=== PATIENT | female | born 1960 | race Two or more races ===

== ENCOUNTER 2018-11-10 07:34 | Day surgery (SDC) | payer OTHER ==
[2018-11-05 12:59] VITALS: BMI 21.8
[2018-11-10] MEDS ORDERED: MIDAZOLAM HCL 2 MG/2 ML SINGLE DOSE VIAL ONE (08:43)
[2018-11-10] MEDS ORDERED: PROPOFOL 20 ML ONE (08:43)
[2018-11-10] MEDS ORDERED: THROMBIN (RECOMBINANT) 5,000 UNIT VIAL TP ONE (08:46)
[2018-11-10] MEDS ORDERED: POVIDONE-IODINE 5% OPHTHALMIC PREP 30 ML SOLUTION ONE (08:46)
[2018-11-10] MEDS ORDERED: ERYTHROMYCIN 0.5% OPHTHALMIC OINTMENT 3.5 GM TUBE ONE (08:46)
[2018-11-10] MEDS ORDERED: TETRACAINE 0.5% OPHTH SOLN 2 ML BOTTLE ONE (08:46)
[2018-11-10] MEDS ORDERED: GELATIN, ABSORBABLE 12-7MM EACH SPONGE TP ONE (08:47)
[2018-11-10] MEDS ORDERED: LIDOCAINE 1%/EPI 1:100000 (20 ML MULTI DOSE VIAL) ONE ×2 (08:47→09:09)
[2018-11-10] MEDS ORDERED: DEXAMETHASONE SOD PHOSPHATE 4 MG/1 ML VIAL ONE (09:24)
[2018-11-10] MEDS ORDERED: ONDANSETRON 4 MG/2 ML VIAL ONE (09:24)
[2018-11-10] MEDS ORDERED: ceFAZolin SODIUM 1 GM VIAL ONE (09:26)
[2018-11-10] MEDS ORDERED: ONDANSETRON 4 MG/2 ML VIAL IVPUSH PRN (13:06)
[2018-11-10] MEDS ORDERED: oxyCODONE HCL 5 MG TABLET PO PRN ×2 (13:06)
[2018-11-10] MEDS ORDERED: LACTATED RINGERS SOLUTION 1,000 ML IV SCH (13:15)
[2018-11-10 14:24] VITALS: BP 124/71; PULSE 72; TEMP 98
--- NOTE | 2018-11-11 07:42 | OP ---
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 PROCEDURE: 1. Excision of xanthelasma, all 4 eyelids. 2. Skin muscle advancement flap from the right upper lid to the right medial canthus. 3. Skin muscle advancement flap from the left upper lid to the left medial canthus. 4. Skin muscle advancement flap on the right lower lid. 5. Skin muscle advancement flap on the left lower lid. All with plastic technique. SURGEON: Anupam Bowers MD ANESTHESIA: Local with sedation. COMPLICATONS: None. ESTIMATED BLOOD LOSS: 2 to 3 mL. OPERATIVE REPORT: Patient was brought to the operating room, placed on the operating room table. Vital signs monitored by Anesthesia. Lid crease was marked symmetrically in both upper lids approximately 10 mm above the central lid margin, and the xanthelasma was marked along its platysmal perimeter in all 4 eyelids. The amount of skin that could be safely removed as would be in a blepharoplasty was marked conservatively at 12 mm below the inferior brow skin and then extending towards the xanthelasma nasally. After intravenous sedation subsequently were marked on both lower lids. After administering intravenous sedation, a time-out was performed, and then, 2% Xylocaine with 1:100,000 epinephrine was injected subcutaneously in all 4 eyelids for a total of 8 mL. Patient was prepped and draped in the usual sterile fashion exposing both eyes. The following procedure was performed bilaterally in the upper lids lid crease. The xanthelasmas were excised around the perimeter and any remaining visible xanthelasma type tissue was excised directly including xanthelasma that had infiltrated the muscle and the perimeter of the skin, until all visible xanthelasma was removed. Hemostasis was achieved with a [place] needle, and antibiotic irrigation was used throughout the case. Skin muscle flaps were then developed along the upper lids, lid creases were incised, and the superior extent of a proposed blepharoplasty incision was also incised across the eyelid extending parallel toward the lateral portion of the eyelid. This skin muscle flap was elevated, hemostasis was achieved, and it was then advanced and sutured to the deep periosteal tissues in the medial canthus with a double-arm 5-0 Prolene passed through a No. 8 [place] red rubber catheter. Along the superior edge of the incision, the muscle layer was closed with buried 7-0 Vicryl sutures, and the medial canthus was tailored with 7-0 Vicryl sutures, as well, and then, 6-0 nylon was used in a running fashion across the right upper lid, and then, across the superior incision and the inferior incision, two separate 6-0 nylons. Additional interrupted 6-0 nylons were used as needed. Standing cutaneous deformities were excised when needed at the tail end of the advancement flaps, and this created a skin muscle flap which advanced to the medial canthus and the defect created by the excision of xanthelasma. A similar procedure was performed in the left side in an almost identical fashion, removing the xanthelasma, dissecting it until all xanthelasma was gone, and then, advancing a skin muscle flap with a similar crease and superior incisions, holding there with a double-arm 5-0 Prolene through the No. 8 [place] bolster, and securing the superior muscle layer with buried 7-0 Vicryl and the incisions themselves with running interrupted 6-0 nylon. Attention was now turned to the lower lids. These were reinjected for further hemostasis with 2-3 mL of 2% Xylocaine with 1:100,000 epinephrine, and the xanthelasma was again meticulously excised in both lower lids removing all xanthelasma that was visible as well as then infiltrating the of the skin with the muscle. These left fairly sizable defects in the medial and central lower eyelid. Skin muscle flap was then dissected in both lower eyelids, and the skin muscle flap was advanced nasally in the right lower lid. A subciliary incision was created in order to allow advancement of this flap without distortion of the eyelid. The flap was held into position in the deep medial canthus with double-arm 5-0 Prolene, passed through a [id number] muscle flap and a No. 8 [place] red rubber catheter. The head of the flap was meticulously sutured to the medial canthal tissues in the lower lids with interrupted 6-0 plain. The skin itself was closed with one or two 7-0 Vicryl in the deep subcutaneous plane and then with running 6-0 nylon across the subciliary incision and across the inferior edge of the advancement flap, reinforced with 6-0 nylon interrupted sutures when needed. Standing cutaneous deformities were excised as necessary. On the left side, a similar flap was created without creating a subciliary incision. However, the orbital xanthelasma was excised. There was a residual xanthelasma temporally in the eyelid as there was too much to remove all of it in the same sitting. However, the bulk of all visible prominent elevated xanthelasma was removed from the nasal and central eyelid on the left side, and this was closed with the advancement flap from 6-0 Vicryl, 6-0 plain, and then, a running and interrupted 6-0 nylon suture with plastic technique. Erythromycin ointment was placed on the sutures in all 4 eyelids and in both eyes, and the patient was taken to the recovery room in stable condition. ANUPAM BOWERS M.D. [id number]
--- NOTE | 2018-11-13 11:54 | PATH ---
Surgical Pathology Report Patient Name: ADELINE KOWALSKI [facility]. Rec. #: [id number] /Age/Gender: 1960 (Age: 58) / F Account: [id number] Location: [facility], [facility] AMBUL[facility]ORY Taken: 11/10/2018 Received: 11/10/2018 Reported: 11/13/2018 Physicians: Kendell Sloan Specimen(s) Received LESION FROM BILATERAL UPPER & LOWER EYELIDS Clinical History Masses bilateral upper and lower eyelids Excision of xanthelasma Final Diagnosis LESIONS FROM RIGHT LATERAL UPPER AND LOWER EYELIDS, EXCISION: SEGMENT OF SKIN SHOWING CLUSTERS OF FOAMY HISTIOCYTES IN THE DERMIS, CONSISTENT WITH XANTHELASMA. Electronically Signed Eleno Byrne M.D. Gross Description Received in formalin, labeled "lesions from right lateral upper and lower eyelids" are 5 pieces of skin tissue ranging from 0.5 to 2.3 cm in greatest dimension. Slightly elevated, montoya to yellow lesions are seen in some skin surfaces. The specimen is submitted in toto in two cassettes after bisected the larger pieces.
== END 2018-11-10 15:10 | disposition home or self-care (01) ==
LOC: FASU 07:34
PROVIDERS: ATTEND Ophthalmology
PROC: 08BN0ZZ Excision of Right Upper Eyelid, Open Approach (ICD-10-PCS; 2018-11-10)
PROC: 08BP0ZZ Excision of Left Upper Eyelid, Open Approach (ICD-10-PCS; 2018-11-10)
PROC: 08BQ0ZZ Excision of Right Lower Eyelid, Open Approach (ICD-10-PCS; 2018-11-10)
PROC: 08SP0ZZ Reposition Left Upper Eyelid, Open Approach (ICD-10-PCS; 2018-11-10)
PROC: 08SN0ZZ Reposition Right Upper Eyelid, Open Approach (ICD-10-PCS; 2018-11-10)
PROC: 0KX10ZZ Transfer Facial Muscle, Open Approach (ICD-10-PCS; 2018-11-10)
PROC: 08BR0ZZ Excision of Left Lower Eyelid, Open Approach (ICD-10-PCS; principal; 2018-11-10 09:38)
DX: H02.61 Xanthelasma of right upper eyelid (principal); H02.62 Xanthelasma of right lower eyelid; H02.64 Xanthelasma of left upper eyelid; H02.65 Xanthelasma of left lower eyelid
CPT/HCPCS: 94760